=== PATIENT | female | born 1955 | race Caucasian/White ===

== ENCOUNTER → 2017-01-10 | Outpatient (CLI) | payer OTHER ==
[~2017-01-10] MED LIST: ALLEGRA ALLERG180 MG PO; ATIVAN0.5 MG PO; BENADRYL50 MG PO; ENOXAPARIN100 MG/1 M SC; ERGOCALCIF50000 UNIT PO; ESCITALOPRAM OX10 MG PO; FLAGYL500 MG PO; IBUPROFEN800 MG PO; LEXAPRO20 MG PO; METOPROLOL TART25 MG PO; OXYCODONE HCL10 MG PO; OXYCODONE HCL30 MG PO; PROAIR HFA8.5 GM IH; SPIRONOLACTONE50 MG PO; SYMBICORT60 INHALA1 IH; ZANAFLEX4 MG PO; ZUPLENZ4 MG PO
[2017-01-10 14:50] LABS: TYPE OF FLUID THORACENTESIS
[2017-01-10 15:33] LABS: BODY FLUID PROTEIN 4.2 G/DL
[2017-01-10 16:26] LABS: BODY FLUID EOSINOPHILS 0 % (0-25); BODY FLUID RBC'S 1000 /MM^3 (0-100); BODY FLUID WBC'S 553 /MM^3 (0-500); MONONUCLEAR WBC'S 81 %; POLYNUCLEAR WBC'S 19 % (0-25)
== END | disposition home or self-care (01) ==
LOC: RAD 13:39 → EDSTATUS 14:00
PROVIDERS: Radiology Diagnostic Radiology
PROC: 0W993ZZ Drainage of Right Pleural Cavity, Percutaneous Approach (ICD-10-PCS; principal; 2017-01-10)
DX: J90 Pleural effusion, not elsewhere classified (principal)
CPT/HCPCS: 76942; 82945; 84157; 88108; 88305; 89051